=== PATIENT | female | born 1970 | race Caucasian/White ===

== ENCOUNTER 2016-12-16 20:13 | Emergency (ER) | payer OTHER ==
[~2016-12-16] VITALS: Ht 162.6 cm; Wt 90.0 kg
[2016-12-16 20:15] VITALS: BP 177/96; PULSE 90; RESP 18; TEMP 97.9; O2SAT 99
[2016-12-16 20:26] VITALS: BP 179/86; PULSE 85; RESP 18; TEMP 98.4; O2SAT 99
[2016-12-16] MEDS ORDERED: diphenhydrAMINE HCL 50 MG CAP PO ONE (20:30)
[2016-12-16] MEDS ORDERED: ONDANSETRON ODT 4 MG TAB PO ONE (20:30)
--- NOTE | 2016-12-16 20:31 | PD ---
HPI . possible allergic reaction Chief Complaint: possible allergic reaction Time Seen by Provider: 20:27 Travel History International Travel<30 days: No Contact w/Intl Traveler<30days: No Traveled to known affect area: No History of Present Illness HPI 46-year-old female who is allergic to shrimp and a list of other drugs here with complaints of possible allergic reaction. Patient was eating dinner at a restaurant and was having kinyarwanda fries, that were supposedly fried in oil that had been used to [place] some shrimp. She thinks this is what is causing her symptoms. She tells me that she is having some lip tingling and is starting to itch. She also reports that she has some mild chest tightness. She denies any chest pain or shortness of breath. She does report a history of asthma. She tells me that today alone she is taking Zyrtec and Benadryl around 2 PM. She has no other complaints. PFSH Past Medical History Asthma: Yes Social History Alcohol Use: No Tobacco Use: No Substance Use: No Allergies-Medications (Allergen,Severity, Reaction): Coded Allergies: Augmentin (Verified Allergy, Severe, hives, 12/16/16) Iodine (Verified Allergy, Severe, 12/16/16) Penicillin (Verified Allergy, Severe, hives, 12/16/16) Shellfish (Verified Allergy, Severe, sob, 12/16/16) Bee Sting (Verified Allergy, Unknown, 12/16/16) Coconut (Verified Allergy, Unknown, 12/16/16) Mold (Blue) Cheese (Verified Allergy, Unknown, 12/16/16) Shark Liver Oil (Verified Allergy, Unknown, 12/16/16) Reported Meds & Prescriptions Reported Meds & Active Scripts Active Epipen 2-Garcia Inj (Epinephrine) 0.3 Mg/0.3 Ml Pfpen 0.3 Mg IM ONCE PRN Review of Systems General / Constitutional: No: Fever Eyes: No: Visual changes HENT: Positive: Other (lip tingling ), No: Headaches Cardiovascular: No: Chest Pain or Discomfort Respiratory: Positive: Other (chest tightness), No: Shortness of Breath Gastrointestinal: No: Abdominal Pain Genitourinary: No: Dysuria Musculoskeletal: No: Pain Skin: No Rash Neurologic: No: Weakness Psychiatric: No: Depression Endocrine: No: Polydipsia Hematologic/Lymphatic: No: Easy Bruising Physical Exam Narrative GENERAL: AAO x 3, no acute distress, Well-nourished, well-developed patient. SKIN: Warm and dry. No visible rashes or bruising. no rash on entire body. HEAD: Normocephalic and atraumatic. EYES: No scleral icterus. No injection or drainage. EOM intact, PERRLA ENT: No nasal drainage noted. Mucous membranes pink. Airway patent. no angioedema or posterior pharynx edema, NECK: Supple, trachea midline. No JVD. CARDIOVASCULAR: Regular rate and rhythm without murmurs, gallops, or rubs. RESPIRATORY: Breath sounds equal bilaterally. No accessory muscle use. No rhonchi or rales. no wheezing. GASTROINTESTINAL: Abdomen soft, non-tender, nondistended. EXTREMITIES: No cyanosis or edema. BACK: Nontender without obvious deformity. No CVA tenderness. NEURO: CN II-12 intact, cms expert strength normal b/l, UE and LE 5/5, no focal deficits PSYCH: AAO x 3, normal affect. Data Data Last Documented VS Vital Signs Date Time Temp Pulse Resp B/P Pulse Ox O2 Delivery O2 Flow Rate FiO2 12/16/16 20:26 98.4 85 18 179/86 99 12/16/16 20:15 Room Air Orders Diphenhydramine (Benadryl) (12/16/16 20:30) Ondansetron Odt (Zofran Odt) (12/16/16 20:30) MDM Medical Decision Making Medical Screen Exam Complete: Yes Emergency Medical Condition: Yes Medical Record Reviewed: Yes Differential Diagnosis Mild allergic reaction, less likely severe anaphylactic reaction, less likely asthma attack, Narrative Course 46-year-old female with a history of asthma and multiple allergies here with complaints of possible allergic reaction. An examination has been done and there are no signs of an acute allergic response. Patient does complain of some tingling of her lips and itching. There is no visible rash. I have given her some Benadryl here in the emergency department. She does report some nausea, and I provided Zofran. I do not recommend any labs etc. Patient is hemodynamically stable and in no signs of distress. Her lungs are clear throughout. There is no evidence of wheezing, stridor or shortness of breath. She has been advised that it would benefit her to carry an EpiPen. She will need follow-up with primary care provider. Patient verbalized understanding of instructions, questions were answered, and thanked me for their care. I advised them if their condition worsens, please return to the nearest emergency room for further care. Diagnosis Primary Impression: Allergic reaction Qualified Code: T78.40XA - Allergic reaction, initial encounter Patient Instructions: General Allergic Reaction (ED) Additional Instructions: Please follow-up with her primary care provider. I have provided you with a prescription for an EpiPen, please carry this with you at all times. Med/Other Pt SpecificInfo: Prescription(s) given Scripts Epinephrine Inj (Epipen 2-Garcia Inj)0.3 Mg/0.3 Ml Pfpen0.3 Mg IM ONCE PRN ( ALLERGIC REACTION) #1 PACK Ref 0 Prov:Chris Panchal MD 12/16/16 Disposition: 01 DISCHARGE HOME Condition: Stable Petra Bills Dec 16, 2016 20:31
[2016-12-16] MEDS ORDERED: EPIP0.3I IM (20:32)
[2016-12-16 20:43] VITALS: BP 179/82; PULSE 85; RESP 18; O2SAT 99
== END 2016-12-16 21:09 | disposition home or self-care (01) ==
LOC: NEPD 20:13
DX: T78.1XXA Other adverse food reactions, not elsewhere classified, initial encounter (principal)
CPT/HCPCS: 99283; Q0163